=== PATIENT | female | born 1990 | race American Indian/Alaskan Native ===

== ENCOUNTER 2018-07-17 12:28 | Emergency (ER) | payer SELFPAY ==
[2018-07-17 12:41] VITALS: BP 133/70
[2018-07-17] MEDS ORDERED: ZOFRAN IV ONE (16:17)
[2018-07-17] MEDS ORDERED: NACL 0.9% 1000 ML 1,000 ML IV ONE (16:17)
--- NOTE | 2018-07-17 16:19 | Emergency Department Report ---
ED General Adult HPI - General Chief complaint: Nausea/Vomiting/Diarrhea Stated complaint: HOT AND COLD/CRAMPS Time Seen by Provider: 07/17/18 16:14 Source: patient, RN notes reviewed Mode of arrival: Ambulatory Limitations: No Limitations - History of Present Illness Initial comments: This is a 27-year-old female who is not known to this provider previously. She presents to the ER with complaint of nontraumatic epigastric pain, and nausea, vomiting, diarrhea. She reports the symptoms have been going on for around 16 hours, and she reports family contacts with similar symptoms. She denies lower abdominal pain , and she denies irritative, obstructive urinary symptoms. Her pain is crampy, does not radiate anywhere, and she reports no exacerbating or relieving factors. -: Gradual, hour(s) Location: abdomen Radiation: non-radiation Quality: aching Consistency: intermittent Worsens with: none Associated Symptoms: loss of appetite, malaise, nausea/vomiting. denies: confusion, chest pain, cough, diaphoresis, fever/chills, headaches, rash, seizure, shortness of breath, syncope, weakness - Related Data Previous Rx's Medication Instructions Recorded Last Taken Type Ondansetron [Zofran Odt] 4 mg PO ONCE #14 tab.rapdis 03/02/15 Unknown Rx Famotidine [Pepcid] 20 mg PO BID #10 tablet 07/17/18 Unknown Rx Ondansetron [Zofran Odt] 4 mg PO Q8HR PRN #20 tab.rapdis 07/17/18 Unknown Rx Allergies Allergy/AdvReac Type Severity Reaction Status Date / Time No Known Allergies Allergy Unverified 07/17/18 12:37 ED Review of Systems ROS: Stated complaint: HOT AND COLD/CRAMPS Other details as noted in HPI Comment: All other systems reviewed and negative ED Past Medical Hx - Past Medical History Previous Medical History?: No - Surgical History Past Surgical History?: Yes Additional Surgical History: back surgery. right Breast lumpectomy - Social History Smoking Status: Current Every Day Smoker Substance Use Type: None - Medications Home Medications: Home Medications Medication Instructions Recorded Confirmed Last Taken Type Ondansetron [Zofran Odt] 4 mg PO ONCE #14 tab.rapdis 03/02/15 Unknown Rx Famotidine [Pepcid] 20 mg PO BID #10 tablet 07/17/18 Unknown Rx Ondansetron [Zofran Odt] 4 mg PO Q8HR PRN #20 tab.rapdis 07/17/18 Unknown Rx ED Physical Exam - General Limitations: No Limitations General appearance: alert, in no apparent distress - Head Head exam: Present: atraumatic, normocephalic - Eye Eye exam: Present: normal appearance, EOMI. Absent: nystagmus - ENT ENT exam: Present: normal exam, normal orophraynx, mucous membranes moist, normal external ear exam - Neck Neck exam: Present: normal inspection, full ROM. Absent: tenderness, meningismus - Respiratory Respiratory exam: Present: normal lung sounds bilaterally. Absent: respiratory distress - Cardiovascular Cardiovascular Exam: Present: regular rate, normal rhythm, normal heart sounds. Absent: bradycardia, tachycardia, irregular rhythm, systolic murmur, diastolic murmur, rubs, gallop - GI/Abdominal GI/Abdominal exam: Present: soft, normal bowel sounds. Absent: distended, tenderness, guarding, rebound, rigid, pulsatile mass - Extremities Exam Extremities exam: Present: normal inspection, full ROM, normal capillary refill , other (2+ pulses noted in the bilateral upper, lower extremities. Compartments soft. No long bony tenderness. The pelvis is stable.). Absent: pedal edema, joint swelling, calf tenderness - Back Exam Back exam: Present: normal inspection, full ROM. Absent: tenderness, CVA tenderness (R), paraspinal tenderness, vertebral tenderness - Neurological Exam Neurological exam: Present: alert, oriented X3, CN II-XII intact, normal gait, other (Extraocular movements intact. Tongue midline. No facial droop. Facial sensation intact to light touch in the V1, V2, V3 distribution bilaterally. 5 and 5 strength in 4 extremities.. Sensation is intact to light touch in 4 extremities.). Absent: motor sensory deficit - Psychiatric Psychiatric exam: Present: normal affect, normal mood - Skin Skin exam: Present: warm, dry, intact, normal color. Absent: rash ED Course Vital Signs 07/17/18 12:38 Temperature 99 F Pulse Rate 98 H Respiratory 16 Rate Blood Pressure 133/70 O2 Sat by Pulse 97 Oximetry ED Medical Decision Making - Lab Data Vital Signs 07/17/18 12:38 Temperature 99 F Pulse Rate 98 H Respiratory 16 Rate Blood Pressure 133/70 O2 Sat by Pulse 97 Oximetry Lab Results 07/17/18 Range/Units Unknown Urine Color Yellow (Yellow) Urine Turbidity Slightly-cloudy (Clear) Urine pH 6.0 (5.0-7.0) Ur Specific Corinne 1.023 (1.003-1.030) Urine Protein <15 mg/dl (Negative) mg/dL Urine Glucose (UA) Neg (Negative) mg/dL Urine Ketones Neg (Negative) mg/dL Urine Blood Neg (Negative) Urine Nitrite Neg (Negative) Urine Bilirubin Neg (Negative) Urine Urobilinogen < 2.0 (<2.0) mg/dL Ur Leukocyte Esterase Lg (Negative) Urine WBC (Auto) 10.0 H (0.0-6.0) /HPF Urine RBC (Auto) 8.0 (0.0-6.0) /HPF U Epithel Cells (Auto) 9.0 (0-13.0) /HPF Urine Bacteria (Auto) 2+ (Negative) /HPF Urine Mucus Few /HPF Urine Yeast (Budding) 1+ /HPF Urine HCG, Qual Negative (Negative) - Medical Decision Making Differential diagnosis, including but not limited to: Gastroenteritis, hepatitis , pancreatitis, viral syndrome, Assessment and plan: 27-year-old female who reports nausea, vomiting, diarrhea and epigastric abdominal pain. I recommended screening laboratory studies to assess hepatic, pancreatic and renal function. The patient refused these studies. She requested supportive care which was administered. She felt improved after appropriate oral medications. Her urinalysis is reviewed and appreciated, she endorses no irritative or obstructive urinary symptoms, and this is most likely incidental asymptomatic bacteriuria. Given that the patient is young and reports immune competency, does not have urinary symptoms, and she is not , it is my pain at the patient does not require antibiotic therapy for this. She can follow-up with the primary care doctor. She'll be discharged AMA. She is currently alert and oriented 3, exhibits decision-making capacity and is free from distracting injury. The risks of leaving including , disability, paralysis, loss of quality of life and permanent disability were all discussed with the patient who verbalized understanding. She is encouraged to return to the ER right away if and when she changes her mind. Critical care attestation.: If time is entered above; I have spent that time in minutes in the direct care of this critically ill patient, excluding procedure time. ED Disposition Clinical Impression: Nausea vomiting and diarrhea Disposition: [id number] LEFT AGAINST MED ADVICE Is pt being admited?: No Does the pt Need Aspirin: No Condition: Good Instructions: Acute Nausea and Vomiting (ED) Additional Instructions: As we discussed, you have left the hospital/emergency room AGAINST MEDICAL ADVICE. By leaving, you risked , disability, paralysis, permanent loss of quality of life. The ER is open 24 hours a day, 7 days a week. It never closes. Please return to the emergency room right away if and when you change your mind. If you decide not to return to the emergency room, please follow-up with the listed physician referrals as soon as possible. Avoid consumption of heavy, spicy foods, advance diet as tolerated,nd to drink plenty of liquids. Return to the ER right away if and when he changed her mind. Make certain to wash hands before and after handling food, and before and after using the restroom. Referrals: PRIMARY CARE, [Primary Care Provider] - 3-5 Days SEAMUS MCKEON MD [Staff Physician] - 3-5 Days [facility] [Provider Group] - 3-5 Days
[2018-07-17] MEDS ORDERED: ZOFRAN ODT PO STA (16:25)
[2018-07-17] MEDS ORDERED: ALUM-MAG HYDROX-SIMETH 200-200-20MG/5ML PO ONE (16:25)
[2018-07-17] MEDS ORDERED: PEPCID PO ONE (16:25)
[2018-07-17] MEDS ORDERED: TYLENOL PO ONE (16:25)
[2018-07-17 16:43] LABS: Bacteria,Urine 2+ /HPF (Negative); Bilirubin,Urine NEG (Negative); Blood,Urine NEG (Negative); Color,Urine Yellow (Yellow); Mucus,Urine FEW /HPF; Protein,Urine <15 mg/dL mg/dL (Negative); Urobilinogen,Urine < 2.0 mg/dL (<2.0)
[2018-07-17 16:44] LABS: HCG Qualitative,Urine Negative (Negative)
== END 2018-07-17 17:32 | disposition left against medical advice (07) ==
LOC: ED 12:28
DX: R10.13 Epigastric pain (principal); R11.2 Nausea with vomiting, unspecified; R19.7 Diarrhea, unspecified; F17.200 Nicotine dependence, unspecified, uncomplicated
CPT/HCPCS: 81001; 81025; 99283; Q0162

== ENCOUNTER → 2019-02-11 | Outpatient (CLI) | payer OTHER | END | disposition short-term general hospital (02) | LOC: SLR 11:00 | PROVIDERS: ATTEND Otolaryngology | DX: G47.30 Sleep apnea, unspecified (principal) | CPT/HCPCS: G0399 ==